=== PATIENT | male | born 1970 | race Caucasian/White ===

== ENCOUNTER 2016-07-13 14:13 | Emergency (ER) | payer OTHER ==
--- NOTE | ~2016-07-13 | CR72 ---
[facility] A Service of [facility] & [facility] RADIOLOGY TEXT RESULTS PATIENT: ANNIE BRADY LOCATION: [facility] UN[facility] : 74 UNIT #: [id number] AGE: [address]: Peter Dong MD SEX: M ORDER DR: [id number] [facility] [address] [place], [place] [address] [id number] MR#: [id number] Acc #: [id number] NAME: ANNIE BRADY : 1970 SEX: M STUDY DATE/TIME: 07/13/2016 13:53 UNIT: [facility] ROOM: STUDY DESCRIPTION: CR Chest Single View Portable Attending Physician: Peter Dong M.D. Ordering Physician: Peter Dong M.D. Primary Care Physician: Quinn Steward M.D. MEDICAL IMAGING REPORT This report is preliminary unless electronic signature is present EXAM Portable chest, 07/13/2016. HISTORY Cough, chest congestion, and chest pain for 8 days with dyspnea. Smoking history for 30 years. FINDINGS The heart is normal in size. The lungs are hyperinflated but otherwise clear. There are no pleural effusions. IMPRESSION No active pulmonary disease. Dictated by... Bull Barreto M.D. THIS IS AN ELECTRONICALLY VERIFIED REPORT Bull Barreto M.D. at 07/14/2016 10:25 AM VIOLETA/alma TD: 07/13/2016 14:59 JOB #: [id number] MEDICAL IMAGING REPORT Page 1 of 1 COPY
[~2016-07-13 14:13] MED LIST: BACTRIM DS TABL1 TA1 PO; HYDROCHLOROTHIA25 MG PO; HYDROCODON-ACE1 EAC7 PO; KEFLEX PO; NICODERM C1 PATCH .1 TD; PERCOCET10 PO; VICODIN 5/1 TAB 5/50 PO
[2016-12-04] MEDS ORDERED: FOLIC ACID1 MG PO (13:52)
[2016-12-04] MEDS ORDERED: ALBUTEROL17 GM INH (13:53)
[2016-12-04] MEDS ORDERED: VITAMINE B-1100 MG PO (13:53)
[2016-12-04] MEDS ORDERED: ALBUTEROL MININEB NEB (13:54)
[2016-12-04] MEDS ORDERED: ANORO ELLIPTA1 EACH INH (13:54)
[2016-12-22] MEDS ORDERED: ZESTORETIC 20-1 EAC2 PO (11:02)
[2016-12-22] MEDS ORDERED: ASPIRIN81 M2 PO (11:02)
== END 2016-07-13 15:08 | disposition home or self-care (01) ==
LOC: CED 14:13
DX: J44.9 Chronic obstructive pulmonary disease, unspecified (principal); J40 Bronchitis, not specified as acute or chronic; J06.9 Acute upper respiratory infection, unspecified; F17.210 Nicotine dependence, cigarettes, uncomplicated
CPT/HCPCS: 71010; 94640; 99284

== ENCOUNTER 2016-09-09 09:06 | Emergency (ER) | payer OTHER ==
[2016-12-04] MEDS ORDERED: FOLIC ACID1 MG PO (13:52)
[2016-12-04] MEDS ORDERED: ALBUTEROL17 GM INH (13:53)
[2016-12-04] MEDS ORDERED: VITAMINE B-1100 MG PO (13:53)
[2016-12-04] MEDS ORDERED: ANORO ELLIPTA1 EACH INH (13:54)
[2016-12-04] MEDS ORDERED: ALBUTEROL MININEB NEB (13:54)
[2016-12-22] MEDS ORDERED: ZESTORETIC 20-1 EAC2 PO (11:02)
[2016-12-22] MEDS ORDERED: ASPIRIN81 M2 PO (11:02)
== END 2016-09-09 10:48 | disposition home or self-care (01) ==
LOC: CED 09:06
DX: S39.011A Strain of muscle, fascia and tendon of abdomen, initial encounter (principal); I10 Essential (primary) hypertension; J44.9 Chronic obstructive pulmonary disease, unspecified; F17.200 Nicotine dependence, unspecified, uncomplicated; M54.9 Dorsalgia, unspecified; G89.29 Other chronic pain; X58.XXXA Exposure to other specified factors, initial encounter; Y92.9 Unspecified place or not applicable
CPT/HCPCS: 99283; J1885

== ENCOUNTER → 2016-12-22 | Day surgery (SDC) | payer OTHER ==
[~2016-12-22] MED LIST changes: +ALBUTEROL MININEB NEB; +ALBUTEROL17 GM INH; +ANORO ELLIPTA1 EACH INH; +ASPIRIN81 M2 PO; +FOLIC ACID1 MG PO; +VITAMINE B-1100 MG PO; +ZESTORETIC 20-1 EAC2 PO
--- NOTE | ~2016-12-22 | OR ---
Unit #: [id number] #: [id number] Patient: ANNIE BRADY [id number] [address] [address] [id number] O MR#: [id number] NAME: ANNIE BRADY ROOM: Date of Procedure: 12/22/2016 Admission Date: 12/22/2016 Surgeon: Melecio Novoa M.D. : 1970 Attending Physician: Melecio Novoa M.D. Primary Care Physician: Quinn Steward M.D. OPERATIVE REPORT PREOPERATIVE DIAGNOSIS Rectal bleed. POSTOPERATIVE DIAGNOSIS Normal colon. PROCEDURE PERFORMED Colonoscopy to cecum. ANESTHESIA IV sedation. COMPLICATIONS None. INDICATIONS FOR PROCEDURE The patient is a 46-year-old gentleman, who presents with a rectal bleed. DESCRIPTION OF PROCEDURE The patient was taken to the operating theater and placed in left lateral decubitus position. IV sedation was initiated. Digital rectal exam was normal. Colonoscope was then passed under direct vision and navigated to the cecum. The patient had excellent prep. I saw no evidence of neoplastic lesions, diverticula, or other findings. His vbvutez-le-btdzal anastomosis was widely patent. He tolerated the procedure well and was sent to the recovery room in good condition. PLAN Recommend Colace on a b.i.d. basis. Dictated by... Joana Barber/rasl TD: 12/22/2016 13:14 JOB #: [id number] Unit #: [id number] #: [id number] Patient: ANNIE BRADY OPERATIVE REPORT Page 1 of 1 X Melecio Novoa MD X PROCEDURE OPERATIVE NOTE
== END | disposition home or self-care (01) ==
LOC: COPS 12-15 13:00
DX: K62.5 Hemorrhage of anus and rectum (principal); J44.9 Chronic obstructive pulmonary disease, unspecified; K21.9 Gastro-esophageal reflux disease without esophagitis; I10 Essential (primary) hypertension; G47.30 Sleep apnea, unspecified; M19.90 Unspecified osteoarthritis, unspecified site; F17.210 Nicotine dependence, cigarettes, uncomplicated; Z79.82 Long term (current) use of aspirin; Z79.899 Other long term (current) drug therapy; Z93.3 Colostomy status; Z98.890 Other specified postprocedural states